=== PATIENT | female | born 1950 | race Caucasian/White ===

== ENCOUNTER → 2016-04-10 | Outpatient (CLI) | payer OTHER, BC ==
[~2016-04-10] MED LIST: ACETAMINOPHEN500 M1 PO; ACYCLOVIR 400400 MG PO; AMARYL4 MG PO; AMBIEN 5 MG TABL5 M1 PO; BENTYL20 MG PO; BUSPIRONE HCL5 MG PO; CIPRO500 MG PO; CRESTOR10 MG PO; DILTIAZEM 24HR240 M2 PO; HUMALOG100 UNIT/2 SQ; HYDROCODONE-AP1 EAC6 PO; IBUPROFEN 400400 M2 PO; KEFLEX500 MG PO; LANTUS100 UNIT/M SUBQ; METFORMIN HCL500 MG PO; ONGLYZA5 MG PO; PROZAC20 MG PO; ROPINIROLE HCL8 MG PO; VENLAFAXIN37.5 MG/1 PO; VIMOVO 500-201 EACH PO; VITAMIN D32000 UNI1 PO; VITAMIN E1000 UNI3 PO
== END ==
LOC: RAD 15:26
DX: M47.816 Spondylosis without myelopathy or radiculopathy, lumbar region (principal); M54.5 Low back pain; M79.605 Pain in left leg; M25.552 Pain in left hip

== ENCOUNTER → 2016-12-12 | Outpatient (CLI) | payer OTHER, BC | LOC: RAD 11:14 | DX: Z12.31 Encounter for screening mammogram for malignant neoplasm of breast (principal) ==

== ENCOUNTER → 2017-05-18 | Outpatient (CLI) | payer OTHER, BC ==
[~2017-05-18] VITALS: Ht 157.5 cm; Wt 64.9 kg
[~2017-05-18] MED LIST changes: +BENTYL 20 MG TA20 M1 PO; +FOLIC ACID1 MG PO; +GLIMEPIRIDE1 MG PO; +LANTUS SOL100 UNIT/1 SUBQ; +METHOTREXATE 22.5 MG PO; +MULTIVITAMINS1 EAC7 PO
--- NOTE | ~2017-05-18 | S ---
[facility] [place] [place] [address] SURGICAL PATH RPT PROCEDURE Name: ATIYA ROLDAN Gregory Room #: REG HERIBERTO Concha.#: [id number] Admission: 05/18/17 Date of : 48 Discharge: Report #: [id number] Path Case #: [id number] PATHOLOGY REPORT COLLECTION DATE: 05/18/2017 RECEIVED DATE: 05/18/2017 SUBMITTING PHYS: Dr. Radu Varner OTHER PHYS: Dr. Nasim Moon SPECIMEN(S) RECEIVED: A.Bx of cecal polyp B.Polyp at sigmoid colon C.Bx of rectal polyp * * * * * * * * * * * * FINAL DIAGNOSIS: A. Colonic mucosa "biopsy of cecal polyp": - Tubular adenoma. - There is no evidence of high-grade dysplasia or malignancy. B. Colonic mucosa "polyp at sigmoid colon": - Tubular adenoma. - There is no evidence of high-grade dysplasia or malignancy. C. Colonic mucosa "biopsy of rectal polyp": - A hyperplastic polyp and a tubular adenoma. - There is no evidence of high-grade dysplasia or malignancy. (SHA:pit; 05/21/2017) PATHOLOGIST: Taz Hermosillo M.D. REPORT ELECTRONICALLY SIGNED BY: Taz Hermosillo M.D. DATE/TIME: 05/21/2017 09:00 * * * * * * * * * * * * GROSS PATHOLOGY: A. Received in formalin labeled "Atiya Olmosnarda, BX of cecal polyp," is a segment of verdugo soft tissue measuring 0.4 cm in maximum dimension. The specimen is submitted entirely in cassette A1. B. Received in formalin labeled "Atiya Roldan, polyp at sigmoid colon," are 2 segments of verdugo soft tissue measuring 0.4 x 0.2 x 0.2 cm in aggregate dimensions and measuring 0.2 cm each in maximum dimension. The specimen is submitted entirely in cassette B1. C. Received in formalin labeled "Atiya Roldan, BX of rectal polyp," are 2 segments of verdugo soft tissue measuring 0.7 x 0.2 x 0.2 cm in aggregate dimensions and ranging from 0.3 to 0.4 cm in maximum dimension. The specimen is submitted entirely in cassette C1. (TSD; 05/18/2017) [address] [place] [address] SURGICAL PATH RPT PROCEDURE Name: ATIYA ROLDAN Room #: REG [facility].#: [id number] Admission: 05/18/17 Date of : 48 Discharge: Report #: [id number] Path Case #: [id number] CLINICAL HISTORY: Pre-OP DX: Hx of polyps Post-OP DX: Polyps INITIAL CPT CODE(S): A; 02192 B; 23797 C; 50233 Professional services performed by [facility] at [facility] [address] [place] [address] Technical services performed by [facility] at [address] [place] [address]., [address], [place] [address]. [facility] [address] [place] [address], [place] [address] PHONE: [phone] DIRECTOR: Nacho Monreal M.D. * * * END OF REPORT * * *
--- NOTE | ~2017-05-18 | P ---
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 PREOPERATIVE DIAGNOSIS: High risk screening colonoscopy due to history of advanced adenomas. POSTOPERATIVE DIAGNOSES: 1. Multiple colon polyps. 2. Unremarkable rectosigmoid anastomosis. 3. Internal hemorrhoids. MEDICATIONS: Deep sedation with propofol per anesthesia. SPECIMENS: 1. Diminutive cecal polyp. 2. Diminutive polyp, distal sigmoid colon. 3. Diminutive polyp, rectum. ESTIMATED BLOOD LOSS: 3 mL. PROCEDURE: Colonoscopy to cecum and terminal ileum. FINDINGS: Prior to propofol sedation, the procedure of colonoscopy was discussed with the patient as well as potential risks, benefits, and complications. She indicates she understands and desires to proceed. With the patient in left lateral decubitus position, digital examination was completed, which revealed no abnormalities. Subsequently, the Mindedi video colonoscope was introduced in the rectum and advanced under direct vision to the cecum. Cecum was identified by the ileocecal valve and the appendiceal orifice. I was able to briefly advance the scope into the mouth of the ileocecal valve and see a villous pattern, but could not deeply intubate due to scope tortuosity. At that point, the scope was slowly withdrawn and careful circumferential views were obtained. , the prep was good. The mucosa was within normal limits, normal vascular pattern, and normal light reflex. As we withdrew the scope, a diminutive polyp was seen in the cecum and removed by biopsy. No additional abnormalities were noted until the distal sigmoid was reached at which point a diminutive polyp was seen and removed by biopsy. Just beyond that site, the rectosigmoid anastomosis was identified and noted to be unremarkable. The patient had a previous segmental resection for diverticular [facility] [address] [place] [address] PROCEDURE REPORT Name: BRADLY CAVAZOS Room #: REG [facility]#: [id number] Admission: 05/18/17 Attend Phys: Radu Varner MD Discharge: Date of : 48 Report #: [id number]. Scope was further withdrawn and in the rectum, a diminutive polyp was seen and removed by biopsy. Upon retroflexion, internal hemorrhoids were seen. Scope was withdrawn. The patient tolerated the procedure well. CONDITION OF THE PATIENT UPON DISCHARGE: Following the procedure, the patient was drowsy, arousable, and conversant and will be discharged to home when fully ambulatory. INSTRUCTIONS TO THE PATIENT AND FAMILY AT THE TIME OF DISCHARGE: We will follow up on the pathology of polyp. However, due to her history of advanced adenoma, suggest she should return in 3 years for followup colonoscopy. She will otherwise return to care of Dr. Nasim Moon and return to see me as needed. Last colonoscopy was more than 3 years ago. Withdrawal time from the cecum was 16 minutes and 10 seconds. <ELECTRONICALLY SIGNED> By: Radu Varner MD 05/22/17 1617 0924 [id number] Radu Varner MD /nt
== END | disposition home or self-care (01) ==
LOC: GI 07:18
DX: Z09 Encounter for follow-up examination after completed treatment for conditions other than malignant neoplasm (principal); Z86.010 Personal history of colon polyps; D12.0 Benign neoplasm of cecum; D12.5 Benign neoplasm of sigmoid colon; D12.8 Benign neoplasm of rectum; K64.8 Other hemorrhoids; K63.89 Other specified diseases of intestine
CPT/HCPCS: 62110; 62900

== ENCOUNTER → 2017-12-27 | Outpatient (CLI) | payer OTHER, BC | LOC: ULTRA 10:49 | DX: N63.10 Unspecified lump in the right breast, unspecified quadrant (principal) ==

== ENCOUNTER → 2019-01-15 | Outpatient (CLI) | payer OTHER, BC | LOC: CAT 13:09 | DX: J84.10 Pulmonary fibrosis, unspecified (principal); J98.4 Other disorders of lung; K76.89 Other specified diseases of liver; Z90.710 Acquired absence of both cervix and uterus; K57.30 Diverticulosis of large intestine without perforation or abscess without bleeding; Z90.49 Acquired absence of other specified parts of digestive tract; Z87.19 Personal history of other diseases of the digestive system; Z88.8 Allergy status to other drugs, medicaments and biological substances; Z88.0 Allergy status to penicillin; Z88.2 Allergy status to sulfonamides ==

== ENCOUNTER → 2019-02-20 | Outpatient (CLI) | payer OTHER, BC | LOC: RAD 14:31 | DX: Z12.31 Encounter for screening mammogram for malignant neoplasm of breast (principal) ==

== ENCOUNTER → 2019-04-22 | Outpatient (CLI) | payer OTHER, BC | LOC: ULTRA 13:42 | DX: M79.622 Pain in left upper arm (principal); R23.4 Changes in skin texture ==

== ENCOUNTER → 2020-02-23 | Outpatient (CLI) | payer OTHER | LOC: BC 08:43 | PROVIDERS: ATTEND Family Medicine | DX: Z12.31 Encounter for screening mammogram for malignant neoplasm of breast (principal) ==

== ENCOUNTER → 2020-07-09 | Outpatient (CLI) | payer OTHER | LOC: CAT 14:48 | PROVIDERS: ATTEND Family Medicine | DX: Z13.6 Encounter for screening for cardiovascular disorders (principal); I25.10 Atherosclerotic heart disease of native coronary artery without angina pectoris; E78.00 Pure hypercholesterolemia, unspecified ==

== ENCOUNTER → 2021-03-03 | Outpatient (CLI) | payer OTHER, MEDICARE | LOC: RAD 11:06 | PROVIDERS: ATTEND Nurse Practitioner | DX: Z12.31 Encounter for screening mammogram for malignant neoplasm of breast (principal) ==

== ENCOUNTER → 2021-03-07 | Outpatient (CLI) | payer OTHER, MEDICARE | END | disposition home or self-care (01) | LOC: SJCVC 11:22 | PROVIDERS: ATTEND Internal Medicine Cardiovascular Disease | DX: R07.9 Chest pain, unspecified (principal); I10 Essential (primary) hypertension; R00.2 Palpitations; E78.00 Pure hypercholesterolemia, unspecified; R06.00 Dyspnea, unspecified; Z90.710 Acquired absence of both cervix and uterus; Z90.49 Acquired absence of other specified parts of digestive tract; Z96.642 Presence of left artificial hip joint; Z98.890 Other specified postprocedural states; Z79.84 Long term (current) use of oral hypoglycemic drugs; Z79.899 Other long term (current) drug therapy ==

== ENCOUNTER → 2021-03-22 | Outpatient (CLI) | payer OTHER, MEDICARE | LOC: SJCVCIMAG 07:52 | PROVIDERS: ATTEND Internal Medicine Cardiovascular Disease | DX: R07.9 Chest pain, unspecified (principal); R00.2 Palpitations; I10 Essential (primary) hypertension; E78.00 Pure hypercholesterolemia, unspecified; R06.00 Dyspnea, unspecified; F41.9 Anxiety disorder, unspecified; J45.909 Unspecified asthma, uncomplicated; F32.9 Major depressive disorder, single episode, unspecified; K21.9 Gastro-esophageal reflux disease without esophagitis; E78.5 Hyperlipidemia, unspecified; E11.9 Type 2 diabetes mellitus without complications; Z88.0 Allergy status to penicillin; Z88.2 Allergy status to sulfonamides; Z88.5 Allergy status to narcotic agent; Z88.8 Allergy status to other drugs, medicaments and biological substances; Z79.82 Long term (current) use of aspirin; Z79.4 Long term (current) use of insulin; Z79.899 Other long term (current) drug therapy; Z72.89 Other problems related to lifestyle; Z82.49 Family history of ischemic heart disease and other diseases of the circulatory system ==

== ENCOUNTER → 2021-04-20 | Outpatient (CLI) | payer OTHER, MEDICARE | LOC: SJCVC 10:29 | PROVIDERS: ATTEND Internal Medicine Cardiovascular Disease | DX: R93.1 Abnormal findings on diagnostic imaging of heart and coronary circulation (principal); R00.2 Palpitations; I10 Essential (primary) hypertension; E78.00 Pure hypercholesterolemia, unspecified; I73.9 Peripheral vascular disease, unspecified; F32.9 Major depressive disorder, single episode, unspecified; J45.909 Unspecified asthma, uncomplicated; F41.9 Anxiety disorder, unspecified; K21.9 Gastro-esophageal reflux disease without esophagitis; E78.5 Hyperlipidemia, unspecified; G47.30 Sleep apnea, unspecified; R09.89 Other specified symptoms and signs involving the circulatory and respiratory systems; Z88.0 Allergy status to penicillin; Z88.2 Allergy status to sulfonamides; Z88.5 Allergy status to narcotic agent; Z88.8 Allergy status to other drugs, medicaments and biological substances; Z79.82 Long term (current) use of aspirin; Z79.4 Long term (current) use of insulin; Z79.899 Other long term (current) drug therapy; Z72.89 Other problems related to lifestyle; Z82.49 Family history of ischemic heart disease and other diseases of the circulatory system ==

== ENCOUNTER → 2021-05-02 | Outpatient (CLI) | payer OTHER, MEDICARE | END | disposition home or self-care (01) | LOC: SJCVCIMAG 09:11 | PROVIDERS: ATTEND Internal Medicine Cardiovascular Disease | DX: I65.23 Occlusion and stenosis of bilateral carotid arteries (principal); I73.9 Peripheral vascular disease, unspecified; M79.605 Pain in left leg; M79.604 Pain in right leg ==